=== PATIENT | male | born 1950 | race Caucasian/White ===

== ENCOUNTER → 2017-06-06 | Day surgery (SDC) | payer BC ==
[~2017-06-06] MED LIST: ACETAMINOPHEN/HYDROcodone 325 MG/5 MG TAB ONE; ASPI-130 PO; BUPIVACAINE/EPINEPHRINE 0.25% 50 ML VIAL ONE; HYDROmorphone HCL PF 2 MG/ML VIAL ONE; ISOSULFAN BLUE 50 MG/5 ML VIAL SQ ONE; LOTR5CAP3 PO; MIDAZOLAM HCL 2 MG/2 ML VIAL ONE; ONDANSETRON HCL 4 MG/2 ML VIAL IV PUSH ONE; PROPOFOL 200 MG/20 ML AMP IV ONE; PROT40TA PO; ceFAZolin 2 GM PREMIX 50 ML ONE
--- NOTE | 2017-06-06 18:45 | TN ---
cc: JULIET YU M.D. DATE OF SURGERY 06/06/2017 PREOPERATIVE DIAGNOSIS Malignant melanoma right upper extremity. POSTOPERATIVE DIAGNOSIS Malignant melanoma right upper extremity. PROCEDURE PERFORMED 1. Wide local excision malignant melanoma right upper extremity 5 x 10 cm. 2. Injection and excision sentinel lymph node x3. SURGEON Juliet Yu MD ANESTHESIA General LMA COMPLICATIONS None INDICATIONS FOR PROCEDURE Mr. Mcnally is a pleasant 66-year-old gentleman who had a concerning skin lesion on his right upper extremity. He noted this to be a rapidly enlarging what he thought was blood blister. He went to chief controller tower who excised it in the office and sent it for pathology. This was found to be a malignant melanoma that was several millimeters deep. He was referred for immediate surgical evaluation, wide local excision first and sentinel lymph node. Risks and benefits of the procedure was discussed with him and his in the office and they were agreeable. They requested surgery be done immediately. INTRAOPERATIVE FINDINGS The patient was found to have three sentinel lymph nodes. The first node was blue and was in the low axilla. It was found to have a count I believe of approximate 1700. The second sentinel lymph node was also blue, this was noted to be high in the axilla and this one had a count of 3000. Third lymph node was not blue and had a count about 700. DETAILS OF THE PROCEDURE The patient was identified, brought the operating room and placed supine on the operating table. After adequate general anesthesia was achieved with LMA, the axilla was prepped and draped in standard surgical fashion. Prior to prepping and draping we injected 5 mL of isosulfan blue in the patient's right upper extremity at the melanoma site. As stated the axilla was prepped and draped in standard surgical fashion. 0.25% Marcaine was injected. Approximate size of the sentinel node was identified with the probe. A transverse incision was then made. Dissection was carried down through subcutaneous tissue in the axilla proper. Almost immediately we identified a blue channel going to a blue node which was confirmed with the probe. This was grasped and excised with surrounding tissue. This was fairly low in the axilla and not very deep. This was excised and checked and found have a 10-second count of 1700. This was labeled sentinel node number one. Dissection then proceeded further down into the axilla proper. Adjacent to the axillary vein is where the second sentinel lymph node was identified. This was a very high node. The node was enlarged and contained blue dye. It was carefully dissected from surrounding tissue with meticulous attention paid to the vein. It was dissected off the underside of the vein and freed up. It was then excised and checked and found have a 10-second count of 3100. This was labeled sentinel node number two. Once these two nodes were out, there was no significant activity noted within the axilla. We did find some low grade activity in one node adjacent to sentinel node number one. This area was excised with generous margins and was checked and found have a 10-second count of 756. This was labeled sentinel node number three. We could not see any blue dye going to this node. After we did this there was only low grade activity noted. I then palpated the axilla and there is no palpable adenopathy within the axilla. I could visualize no other blue channels or blue dye. At this point I felt confident we had three good sentinel nodes. Wound was copiously irrigated with normal saline solution. A 7-Lithuanian Davis-Cox drain was inserted. Drain was secured with 3-0 nylon. Wound was then rinsed with saline a second time and it was noted be clear. Wound was infiltrated with 10 mL of 0.25% Marcaine and then the wound was closed in two layers using a 3-0 and 4-0 Vicryl. Sterile dressings were applied. The patient's arm was then repositioned up onto his anterior chest. Posterior surface of the right upper extremity was prepped and draped in standard surgical fashion. Residual lesion measured about a centimeter in diameter. We therefore went 2 centimeters proximally and medially to make a 5 cm wide incision. We used a 10 cm long incision in order to achieve primary closure. 0.25% Marcaine was injected along the proposed incision site. A 5 x 10 cm elliptical incision was then made. Subcutaneous tissue was dissected with electrocautery Bovie. Tissue carried down to the extensor fascia and then the fat was dissected off the fascia circumferentially. The skin was then excised and labeled with a short stitch superior, long stitch lateral. On the preoperative exam we did palpate a subcutaneous nodule which was just on the medial edge of our dissection. We dissected this out and this was found to be a small lipoma. This was sent as a separate specimen, a subcutaneous nodule which was just proximal to the melanoma site. Wound was then copiously irrigated with normal saline solution. Wound was then closed in two layers using a 3-0 and 4-0 Vicryl. Sterile dressings were applied. The patient was awakened and brought to recovery in stable condition. MD MAXIMINO Lopez/FLACO /3:51 PM /6:29 PM
== END | disposition home or self-care (01) ==
LOC: ESDC 15:53
PROVIDERS: ATTEND Surgery Trauma Surgery
DX: C43.61 Malignant melanoma of right upper limb, including shoulder (principal); D17.21 Benign lipomatous neoplasm of skin and subcutaneous tissue of right arm
CPT/HCPCS: 00400; 01610; 11606; 12034; 24075; 38525; 38792; 88305; 88342; J0690; J1170; J2250; J2405; J3010; Q9968; 88341